=== PATIENT | female | born 1985 | race Caucasian/White ===

== ENCOUNTER 2017-03-17 11:43 | Emergency (ER) | payer OTHER ==
[~2017-03-17] VITALS: Ht 160 cm; Wt 97.1 kg
[2017-03-17 11:51] VITALS: Ht 160 cm; Wt 97.1 kg
[2017-03-17 14:17] VITALS: BP 140/81
== END 2017-03-17 14:17 | disposition home or self-care (01) ==
LOC: ED 11:43
DX: K04.7 Periapical abscess without sinus (principal)
CPT/HCPCS: J0561